=== PATIENT | male | born 1975 | race Caucasian/White ===

== ENCOUNTER 2019-01-07 23:35 | Emergency (ER) | payer SELFPAY ==
--- NOTE | 2019-01-08 00:04 | EDM.PDOC ---
ED HPI GENERAL MEDICAL PROBLEM - General Chief Complaint: ENT Problem Stated Complaint: SORE THROAT Time Seen by Provider: 01/07/19 23:48 Source of Information: Reports: Patient, RN Notes Reviewed History Limitations: Reports: No Limitations - History of Present Illness INITIAL COMMENTS - FREE TEXT/NARRATIVE: The patient states that he moved here from [place] on 12/27/2018. Around that time, he developed nasal and chest congestion, along with a sore throat. He went to the walk-in clinic on 12/29/2018, where he states that he was examined, but that no tests were performed, including a rapid strep test. He states that he was diagnosed with a URI, and prescribed cephalexin 500 mg, 2 tablets every 12 hours, which he states he has been taking as prescribed. Despite that, however, he states that his throat has gotten worse, and that it is now difficult for him to swallow. He has had occasional ear pain. He has not had a fever. The patient states that he was diagnosed with culture-positive strep throat about twice a year when he was younger. He states that it was never suggested that he undergo a tonsillectomy. The patient does not have a PCP. Throat Pain Score (Numeric/FACES): 9 - Related Data Allergies Allergy/AdvReac Type Severity Reaction Status Date / Time codeine Allergy Cannot Verified 01/07/19 23:40 Remember Home Meds: Home Meds Cephalexin [Keflex] 1,000 mg PO BID 01/07/19 [History] Past Medical History - Past Surgical History HEENT Surgical History: Reports: Oral Surgery (edentulous) GI Surgical History: Reports: Appendectomy Musculoskeletal Surgical History: Reports: Shoulder Surgery (right, arthroscopic ) Social & Family History - Tobacco Use Smoking Status *Q: Current Every Day Smoker Years of Tobacco use: 27 Packs/Tins Daily: 1 - Alcohol Use Alcohol Use History: Yes Alcohol Use Frequency: Socially - Recreational Drug Use Recreational Drug Use: No - Living Situation & Occupation Living situation: Reports: , with Spouse, with Family (Daughter, 2 grandkids) Occupation: Employed ([employer]) ED ROS ENT - Review of Systems Review Of Systems: ROS reveals no pertinent complaints other than HPI. ED EXAM, ENT - Physical Exam Exam: See Below Exam Limited By: No Limitations General Appearance: Alert, WD/WN, No Apparent Distress Eye Exam: Bilateral Eye: EOMI, Normal Inspection Ears: Normal External Exam, Normal Canal, Hearing Grossly Normal, Normal TMs Nose: Normal Inspection, Normal Mucousa, No Blood Mouth/Throat: Normal Inspection, Normal Gums, Normal Lips, Normal Oropharynx ( No oropharyngeal erythema or swelling), Other (Edentulous) Head: Atraumatic, Normocephalic Neck: Normal Inspection, Supple, Non-Tender, Full Range of Motion. No: Lymphadenopathy (L), Lymphadenopathy (R) Course - Vital Signs Last Recorded V/S: Last Vital Signs Temp 36.6 C 01/07/19 23:41 Pulse 84 01/07/19 23:41 Resp 18 01/07/19 23:41 BP 145/97 H 01/07/19 23:41 Pulse Ox 98 01/07/19 23:41 - Orders/Labs/Meds Orders: Active Orders 24 hr Category Date Time Status CULTURE STREP A CONFIRMATION [] Stat Lab 01/07/19 23:58 Results STREP SCRN A RAPID W CULT CONF [] Stat Lab 01/07/19 23:58 Results - Re-Assessments/Exams Free Text/Narrative Re-Assessment/Exam: 01/08/19 00:03 Because of the patient's history of recurrent strep throat, I obtained a strep swab, despite his oropharynx appearing to be normal. If positive, this would strongly suggest that the patient is a strep carrier. 01/08/19 00:59 The rapid strep test results were discussed with the patient. His strep test is negative. Because his oropharynx appeared to be completely normal, with no erythema or swelling, he has no lymphadenopathy, and he has no history of fever , peritonsillar cellulitis or abscess is not on the differential. The patient appears to have viral pharyngitis. I explained that there are no medicines that will get rid of viral pharyngitis, that it will simply have to run its course. I advised him to stop taking the Keflex, and throat the remaining tablets into the trash. I will recommend that he take [id number] ibuprofen or Tylenol, saltwater gargles, and Chloraseptic spray. Departure - Departure Time of Disposition: 01:00 Disposition: Home, Self-Care 01 Condition: Good Clinical Impression: Acute viral pharyngitis - Discharge Information *PRESCRIPTION DRUG MONITORING PROGRAM REVIEWED*: Not Applicable *COPY OF PRESCRIPTION DRUG MONITORING REPORT IN PATIENT CHEL: Not Applicable Referrals: PCP,Not In Area [Primary Care Provider] - Forms: ED Department Discharge Additional Instructions: You were seen in the emergency room for nearly 2 weeks of a sore throat, getting worse despite antibiotics. Workup in the ER included a rapid strep test, which returned negative. You do not have strep throat. Based on your history, physical exam, and rapid strep test results, you are most likely suffering from viral pharyngitis. Unfortunately, there are no medicines to treat viral pharyngitis - it will have to run its course. We recommend that you stop taking the Keflex and throw the remaining tablets in the trash. Do not flush them down the toilet or wash them down the sink. Take [id number] Tylenol or ibuprofen as needed for discomfort. Consider also warm salt water gargles and Chloraseptic spray. If any other problems, please do not hesitate to return to the ER. - My Orders Last 24 Hours: My Active Orders 01/07/19 23:58 CULTURE STREP A CONFIRMATION [RM] Stat STREP SCRN A RAPID W CULT CONF [RM] Stat - Assessment/Plan Last 24 Hours: My Active Orders 01/07/19 23:58 CULTURE STREP A CONFIRMATION [RM] Stat STREP SCRN A RAPID W CULT CONF [RM] Stat
== END 2019-01-08 01:12 | disposition home or self-care (01) ==
LOC: JD.ED 23:35
DX: J02.9 Acute pharyngitis, unspecified (principal); F17.210 Nicotine dependence, cigarettes, uncomplicated; Z88.5 Allergy status to narcotic agent
CPT/HCPCS: 87081; 87430; 99282; 99283